=== PATIENT | female | born 1985 | race Caucasian/White ===

== ENCOUNTER 2016-08-17 06:36 | Inpatient (IN) | payer BC ==
[~2016-08-17] VITALS: Ht 170.2 cm; Wt 112.7 kg
--- NOTE | ~2016-08-17 | OR ---
PATIENT'S NAME: MACY HUTCHISON [facility] AGE: 31 Y [address] ROOM: [place] [address] LOCATION: GOBS ADMIT DATE: 08/17/2016 OR/Procedure Report DISCHARGE DATE: FAMILY PHYSICIAN: MILVIA BLANTON MD ATTENDING PHYSICIAN: MILVIA BLANTON SURGEON: Milvia Blanton MD MOVIE THEATER MANAGER: None. DATE OF PROCEDURE: 08/17/2016 PROCEDURE PERFORMED: Spontaneous vaginal delivery over intact perineum. PRE-DELIVERY DIAGNOSES: 1. Intrauterine at 38 weeks and 0 days. 2. Gestational hypertension. 3. Genital herpes on suppression with no active lesions identified. 4. History of gestational diabetes with previous . POST-DELIVERY DIAGNOSES: 1. Intrauterine at 38 weeks and 0 days. 2. Gestational hypertension. 3. Genital herpes on suppression with no active lesions identified. 4. History of gestational diabetes with previous . FINDINGS: Viable female , one with a weight of 6 pounds 4 ounces. score of 8 and 9. Intact placenta with three-vessel cord. No cervical, vaginal, or perineal lacerations identified. ESTIMATED BLOOD LOSS: 300 mL. ANTIBIOTICS: None indicated. ANESTHESIA: Anesthesia was with epidural. COMPLICATIONS: None. DISPOSITION: The patient and remained in room for care. INDICATIONS FOR THE PROCEDURE: The patient is a 31-year-old, G3, P1-0-1-1, who presented to the hospital on 08/17/2016 for a scheduled induction at 38 weeks and 0 days due to diagnosis of gestational hypertension. She has had a CBC, CMP that were within normal limits on August 16 and a urine protein to creatinine ratio that was 0.1. The patient never had any severe range of blood pressures. The cervix was unfavorable on presentation. She was finger tipped approximately 50% effaced, posterior and soft. Attempt was made to place a Oh bulb, but it was unsuccessful. 25 mcg of Cytotec was placed. PATIENT'S NAME: MACY HUTCHISON [facility] AGE: 31 Y [address] ROOM: [place] [address] LOCATION: GOBS ADMIT DATE: 08/17/2016 OR/Procedure Report DISCHARGE DATE: FAMILY PHYSICIAN: MILVIA BLANTON MD ATTENDING PHYSICIAN: MILVIA BLANTON Pitocin was started at approximately 1230 hours when patient had made no cervical change, but was jeffery every 2 to 5 minutes and was becoming uncomfortable. The patient was noted to rapidly progress and was complaining of more pelvic pressure, was 7 cm dilated approximately at 1630 hours. Artificial rupture of membranes was performed at 1658 hours with large amount of clear fluid noted. The patient was 9 cm dilated at that time. She rapidly progressed to complete and began expulsive efforts. DESCRIPTION OF PROCEDURE: With expulsive efforts, the patient delivered the head in the straight OA presentation. It was allowed to restitute. Tight nuchal cord x1 was noted. Infant was delivered through the nuchal cord with the assistance of downward and upward traction with maternal expulsive efforts. The patient was noted to have a nuchal and body cord. was placed on mother's chest and was noted to have a vigorous cry. Large amount of clear fluid was present after delivery. Cord was clamped and cut. Cord blood was obtained. IV Pitocin was started per protocol. Gentle downward traction was placed on the cord and the placenta delivered spontaneously intact. The cervix, vagina, and perineum were inspected for lacerations with none noted. The patient's bladder was drained with a Red Humphrey catheter with proper use of Betadine for sterilization prior to placement as she had not drained her bladder for approximately an hour. Clear urine was noted. All needle, sponge, and instrument counts were noted be correct x2, and the patient and the infant were to remain in her room for care. MILVIA BLANTON MD GT/modl /[id number] d: 08/17/16 2154 t: 08/18/16 0851, OPERATIVE SUMMARY
[~2016-08-17 06:36] MED LIST: FOLIC ACID 40400 MCG PO; NORCO 5-325 MG1 TAB PO; PRENATAL 1+1)(P1 TAB PO; TUMS200 MG PO; TYLENOL325 MG PO; VALTREX (NON-F500 MG PO; ZANTAC (NON-FO150 MG PO
[2016-08-17 07:18] LABS: BASOPHIL % 0.3 %; EOSINOPHIL # 0.1 K/uL (0.0-0.5); EOSINOPHIL % 0.6 %; HEMATOCRIT 32.6 % (33.0-46.0); HEMOGLOBIN 10.5 g/dL (11.0-15.0); IMMATURE GRANULOCYTE % 0.3 %; LYMPHOCYTE # 1.8 K/uL (0.8-4.0); MCH 28.8 pg (27.0-34.0); MCHC 32.2 gm/dL (32.0-36.5); MCV 89.3 fl (83.0-98.0); MONOCYTE # 0.5 K/uL (0.0-1.0); MONOCYTE % 6.1 %; MPV 10.3 fl (9.4-12.4); NEUTROPHIL # (ANC) 6.3 K/uL (1.8-7.8); NEUTROPHIL % 71.7 %; NRBC % 0 /100WBC (0-0.00); PLATELET COUNT 267 K/uL (150-450); RBC 3.65 M/uL (3.50-5.50); RDW-CV 14.5 % (11.9-14.6); WBC 8.8 K/uL (4.0-11.0)
--- NOTE | 2016-08-17 14:40 | NUR ---
Reviewed patient's chart at approximately 1000. No concerns noted in the chart. Patient was induced and has not delivered as of 1440. Will continue to follow while here.
[2016-08-18 04:51] LABS: BASOPHIL % 0.2 %; EOSINOPHIL % 0.4 %; HEMOGLOBIN 9.1 g/dL (11.0-15.0); IMMATURE GRANULOCYTE % 0.3 %; LYMPHOCYTE # 3.1 K/uL (0.8-4.0); LYMPHOCYTE % 30.2 %; MCH 29.3 pg (27.0-34.0); MCHC 32.5 gm/dL (32.0-36.5); MONOCYTE # 0.8 K/uL (0.0-1.0); MONOCYTE % 7.8 %; MPV 10.4 fl (9.4-12.4); NEUTROPHIL # (ANC) 6.4 K/uL (1.8-7.8); NEUTROPHIL % 61.1 %; NRBC % 0 /100WBC (0-0.00); PLATELET COUNT 215 K/uL (150-450); RBC 3.11 M/uL (3.50-5.50); RDW-CV 14.5 % (11.9-14.6); WBC 10.4 K/uL (4.0-11.0)
[2016-08-18] MEDS ORDERED: SURFAK240 MG PO (18:29)
[2016-08-18] MEDS ORDERED: MOTRIN800 MG PO (18:30)
[2016-08-18] MEDS ORDERED: NORCO 5-325 TA1 EACH PO (18:31)
[2016-08-18] MEDS ORDERED: FEOSOL325 MG PO (18:31)
== END 2016-08-18 19:30 | disposition disaster alternative care site (69) | DRG 774 ==
LOC: GOBS 06:36 → EDSTATUS 08-31 06:35 → GOBM 08-31 09:10
PROVIDERS: ADMIT Obstetrics & Gynecology
PROC: 3E0P7GC Introduction of Other Therapeutic Substance into Female Reproductive, Via Natural or Artificial Opening (ICD-10-PCS; principal; 2016-08-17)
PROC: 3E033VJ Introduction of Other Hormone into Peripheral Vein, Percutaneous Approach (ICD-10-PCS; principal; 2016-08-17)
PROC: 10907ZC Drainage of Amniotic Fluid, Therapeutic from Products of Conception, Via Natural or Artificial Opening (ICD-10-PCS; principal; 2016-08-17)
PROC: 10E0XZZ Delivery of Products of Conception, External Approach (ICD-10-PCS; principal; 2016-08-17)
DX: O13.4 Gestational [pregnancy-induced] hypertension without significant proteinuria, complicating childbirth (principal); O98.32 Other infections with a predominantly sexual mode of transmission complicating childbirth; A60.00 Herpesviral infection of urogenital system, unspecified; Z3A.38 38 weeks gestation of pregnancy; Z37.0 Single live birth; O99.02 Anemia complicating childbirth; D64.9 Anemia, unspecified
CPT/HCPCS: J2590; J3010; J7120